=== PATIENT | female | born 1975 | race African-American/Black ===

== ENCOUNTER 2016-10-05 15:22 | Emergency (ER) | payer BC | END 2016-10-05 15:47 | disposition home or self-care (01) | LOC: ER 15:22 | DX: J02.9 Acute pharyngitis, unspecified (principal); F41.9 Anxiety disorder, unspecified; F17.200 Nicotine dependence, unspecified, uncomplicated | CPT/HCPCS: 71020; 87070; 87880; 94640; 99283 ==